=== PATIENT | female | born 1965 | race Caucasian/White ===

== ENCOUNTER 2020-06-06 11:00 | Outpatient (CLI) | payer BC | END 2020-06-06 23:59 | disposition home or self-care (01) | LOC: WOU 11:00 | PROVIDERS: ATTEND Surgery | DX: T85.44XA Capsular contracture of breast implant, initial encounter (principal); N64.4 Mastodynia | CPT/HCPCS: G0463 ==

== ENCOUNTER 2020-06-20 10:50 | Outpatient (CLI) | payer BC | END 2020-06-20 23:59 | disposition home or self-care (01) | LOC: WOU 10:50 | PROVIDERS: ATTEND Surgery | DX: T85.44XD Capsular contracture of breast implant, subsequent encounter (principal); N64.4 Mastodynia | CPT/HCPCS: G0463 ==

== ENCOUNTER 2020-09-12 11:45 | Outpatient (CLI) | payer BC | END 2020-09-12 23:59 | disposition home or self-care (01) | LOC: WOU 11:45 | PROVIDERS: ATTEND Surgery | DX: T85.44XD Capsular contracture of breast implant, subsequent encounter (principal); N64.4 Mastodynia; I10 Essential (primary) hypertension | CPT/HCPCS: G0463 ==

== ENCOUNTER 2020-10-24 11:30 | Outpatient (CLI) | payer BC | END 2020-10-24 23:59 | disposition home or self-care (01) | LOC: WOU 11:30 | PROVIDERS: ATTEND Surgery | DX: T85.44XD Capsular contracture of breast implant, subsequent encounter (principal); N64.4 Mastodynia | CPT/HCPCS: G0463 ==

== ENCOUNTER 2020-10-24 11:40 | Outpatient (CLI) | payer BC | END 2020-10-24 23:59 | disposition home or self-care (01) | LOC: LAB 11:40 | PROVIDERS: ATTEND Surgery | DX: Z01.812 Encounter for preprocedural laboratory examination (principal); Z20.822 Contact with and (suspected) exposure to COVID-19; T85.44XD Capsular contracture of breast implant, subsequent encounter | CPT/HCPCS: C9803; U0003 ==

== ENCOUNTER 2020-10-31 06:26 | Day surgery (SDC) | payer BC ==
[2020-10-31] MEDS ORDERED: ANESTHESIA TRAY IN PYXIS 1 EA TRAY MC ONE (06:55)
[2020-10-31] MEDS ORDERED: CEFAZOLIN 0 GM ONE (07:17)
[2020-10-31] MEDS ORDERED: GENTAMICIN 80 MG/2 ML VIAL ONE (07:17)
[2020-10-31] MEDS ORDERED: BACITRACIN 50000 UNITS/VIAL ONE (07:17)
[2020-10-31] MEDS ORDERED: BUPIVACAINE 0.5 % PF 150 MG/30 ML VIAL ONE (07:19)
[2020-10-31] MEDS ORDERED: LIDOCAINE 1%-EPI 1:100,000 20 ML VIAL ONE (07:19)
[2020-10-31] MEDS ORDERED: HYDROMORPHONE INJ 2 MG/ML DISP.SYRIN ONE (07:26)
[2020-10-31] MEDS ORDERED: MIDAZOLAM HCL 2 MG/2ML VIAL ONE (07:26)
[2020-10-31] MEDS ORDERED: ROCURONIUM BROMIDE 50 MG/5 ML ONE (07:38)
[2020-10-31] MEDS ORDERED: HYDROMORPHONE 1 MG/1 ML DISP.SYRIN ONE (11:49)
[2020-10-31] MEDS ORDERED: oxyCODONE/APAP (5/325 MG) 1 UDTAB TABLET ONE (12:49)
== END 2020-10-31 13:40 | disposition home or self-care (01) ==
LOC: DS 06:26
PROVIDERS: ATTEND Surgery
DX: T85.44XA Capsular contracture of breast implant, initial encounter (principal); Y81.3 Surgical instruments, materials and general- and plastic-surgery devices (including sutures) associated with adverse incidents; N64.4 Mastodynia; E78.5 Hyperlipidemia, unspecified; G89.29 Other chronic pain; E66.9 Obesity, unspecified; Z68.30 Body mass index [BMI] 30.0-30.9, adult; I10 Essential (primary) hypertension; Z79.899 Other long term (current) drug therapy
CPT/HCPCS: 19316; 19370; 84703; 88300; 88305; J0690; J1100; J1170 ×2; J1885; J2250; J2405; J2704; J2765; J3490 ×2; J1580

== ENCOUNTER 2020-11-01 11:00 | Outpatient (CLI) | payer BC | END 2020-11-01 23:59 | disposition home or self-care (01) | LOC: WOU 11:00 | PROVIDERS: ATTEND Surgery | DX: Z48.817 Encounter for surgical aftercare following surgery on the skin and subcutaneous tissue (principal); T85.44XD Capsular contracture of breast implant, subsequent encounter; I10 Essential (primary) hypertension; Z87.891 Personal history of nicotine dependence | CPT/HCPCS: G0463 ==

== ENCOUNTER 2020-11-28 10:50 | Outpatient (CLI) | payer BC | END 2020-11-28 23:59 | disposition home or self-care (01) | LOC: WOU 10:50 | PROVIDERS: ATTEND Surgery | DX: T85.44XD Capsular contracture of breast implant, subsequent encounter (principal) | CPT/HCPCS: G0463 ==